=== PATIENT | male | born 1945 | race Caucasian/White ===

== ENCOUNTER 2017-10-05 08:30 | Outpatient (CLI) | payer MEDICARE, OTHER | END 2017-10-05 08:31 | disposition home or self-care (01) | LOC: LAB.F 08:30 | PROVIDERS: ATTEND Family Medicine | DX: E03.9 Hypothyroidism, unspecified (principal) | CPT/HCPCS: 36415; 84443 ==

== ENCOUNTER 2017-12-13 07:33 | Outpatient (CLI) | payer MEDICARE, OTHER ==
[2017-12-13 12:20] LABS: CHOL/HDL RATIO 2.3 (<5.0); CHOLESTEROL 177 mg/dL; HDL CHOLESTEROL 78 mg/dL; LDL CHOLESTEROL,CALCULATED 87 mg/dL; LDL/HDL RATIO 1.1 (<3.6); VLDL CHOLESTEROL 12 mg/dL
== END 2017-12-13 07:34 | disposition home or self-care (01) ==
LOC: LAB.F 07:33
PROVIDERS: ATTEND Family Medicine
DX: E78.5 Hyperlipidemia, unspecified (principal); Z12.5 Encounter for screening for malignant neoplasm of prostate
CPT/HCPCS: 36415; 80061; G0103; 83721; 84153

== ENCOUNTER 2018-09-28 14:00 | Outpatient (CLI) | payer MEDICARE, OTHER ==
[2018-09-28 18:16] LABS: CALCIUM 9.2 mg/dL (8.5-10.3); CREATININE 0.9 mg/dL (0.6-1.2)
== END 2018-09-28 14:01 | disposition home or self-care (01) ==
LOC: LAB.F 14:00
PROVIDERS: ATTEND Internal Medicine
DX: I10 Essential (primary) hypertension (principal); E03.9 Hypothyroidism, unspecified
CPT/HCPCS: 36415; 80048; 84443

== ENCOUNTER 2019-09-27 15:47 | Outpatient (CLI) | payer MEDICARE, OTHER ==
[2019-09-27 18:01] LABS: CALCIUM 10.3 mg/dL (8.5-10.3); CREATININE 1.1 mg/dL (0.6-1.2)
== END 2019-09-27 15:48 | disposition home or self-care (01) ==
LOC: LAB.S 15:47
PROVIDERS: ATTEND Internal Medicine
DX: I10 Essential (primary) hypertension (principal); E03.9 Hypothyroidism, unspecified
CPT/HCPCS: 36415; 80048; 84443

== ENCOUNTER 2020-08-03 10:03 | Outpatient (CLI) | payer MEDICARE, OTHER ==
[2020-08-03 16:34] LABS: BASOPHILS # (AUTO) 0.1 10^3/uL (0.0-0.1); EOSINOPHILS % (AUTO) 0.8 %; LYMPHOCYTES # (AUTO) 1.1 10^3/uL (1.5-3.5); LYMPHOCYTES % (AUTO) 21.5 %; MEAN CORPUSCULAR HEMOGLOBIN 29.7 pg (27.0-31.0); MEAN CORPUSCULAR HGB CONC 31.4 g/dL (32.0-36.0); MEAN CORPUSCULAR VOLUME 94.5 fL (80.0-94.0); MEAN PLATELET VOLUME 10.7 fL (7.4-11.4); MONOCYTES # (AUTO) 0.4 10^3/uL (0.0-1.0); MONOCYTES % (AUTO) 7.3 %; NEUTROPHILS # (AUTO) 3.4 10^3/uL (1.5-6.6); NEUTROPHILS % (AUTO) 69.2 %; PLT - PLATELET COUNT 281 10^3/uL (130-450); RED BLOOD COUNT 4.72 10^6/uL (4.70-6.10); RED CELL DISTRIBUTION WIDTH 13.8 % (12.0-15.0); WHITE BLOOD COUNT 4.9 x10^3/uL (4.8-10.8)
[2020-08-03 17:20] LABS: ALBUMIN/GLOBULIN RATIO 1.3 (1.0-2.2); BILIRUBIN,TOTAL 0.9 mg/dL (0.2-1.0); CALCIUM 9.4 mg/dL (8.5-10.3); CREATININE 0.9 mg/dL (0.6-1.2)
[2020-08-03 19:09] LABS: FREE T4 (FREE THYROXINE) 1.39 ng/dL (0.58-1.64)
== END 2020-08-03 10:04 | disposition home or self-care (01) ==
LOC: LAB.S 10:03
PROVIDERS: ATTEND Internal Medicine
DX: I10 Essential (primary) hypertension (principal); E03.9 Hypothyroidism, unspecified
CPT/HCPCS: 36415; 80053; 84439; 84443; 85025

== ENCOUNTER 2021-03-15 07:54 | Outpatient (CLI) | payer MEDICARE, OTHER ==
[2021-03-15 14:28] LABS: BASOPHILS # (AUTO) 0.1 10^3/uL (0.0-0.1); EOSINOPHILS # (AUTO) 0.2 10^3/uL (0.0-0.7); EOSINOPHILS % (AUTO) 4.4 %; HCT - HEMATOCRIT 43.2 % (42.0-52.0); LYMPHOCYTES # (AUTO) 1.1 10^3/uL (1.5-3.5); MEAN CORPUSCULAR HGB CONC 32.4 g/dL (32.0-36.0); MEAN CORPUSCULAR VOLUME 92.5 fL (80.0-94.0); MONOCYTES # (AUTO) 0.4 10^3/uL (0.0-1.0); MONOCYTES % (AUTO) 8.7 %; NEUTROPHILS # (AUTO) 3.2 10^3/uL (1.5-6.6); NEUTROPHILS % (AUTO) 63.7 %; PLT - PLATELET COUNT 243 10^3/uL (130-450); RED BLOOD COUNT 4.67 10^6/uL (4.70-6.10); RED CELL DISTRIBUTION WIDTH 13.6 % (12.0-15.0)
[2021-03-15 14:48] LABS: ALBUMIN 4.2 g/dL (3.2-5.5); ALBUMIN/GLOBULIN RATIO 1.5 (1.0-2.2); ALKALINE PHOSPHATASE 58 IU/L (42-121); ALT ALANINE AMINOTRANSFERASE 26 IU/L (10-60); AST ASPARTATE AMINOTRANSFERASE 27 IU/L (10-42); BILIRUBIN,TOTAL 0.8 mg/dL (0.2-1.0); BUN - BLOOD UREA NITROGEN 18 mg/dL (6-20); CALCIUM 9.3 mg/dL (8.5-10.3); CARBON DIOXIDE - CO2 26 mmol/L (21-32); CHLORIDE 104 mmol/L (101-111); CHOL/HDL RATIO 2.5 (<5.0); CHOLESTEROL 177 mg/dL; CREATININE 0.9 mg/dL (0.6-1.2); GFR - MDRD 83 (>89); GLUCOSE 106 mg/dL (70-100); HDL CHOLESTEROL 72 mg/dL; LDL CHOLESTEROL,CALCULATED 95 mg/dL; LDL/HDL RATIO 1.3 (<3.6); POTASSIUM 4.2 mmol/L (3.5-5.0); SODIUM 137 mmol/L (135-145); TRIGLYCERIDES 48 mg/dL; VLDL CHOLESTEROL 10 mg/dL
[2021-03-15 14:55] LABS: THYROID STIMULATING HORMONE 0.83 uIU/mL (0.34-5.60)
== END 2021-03-15 07:55 | disposition home or self-care (01) ==
LOC: LAB.S 07:54
PROVIDERS: ATTEND Internal Medicine
DX: Z00.00 Encounter for general adult medical examination without abnormal findings (principal); I10 Essential (primary) hypertension; E03.9 Hypothyroidism, unspecified
CPT/HCPCS: 36415; 80053; 80061; 83721; 84443; 85025

== ENCOUNTER 2021-03-25 11:35 | Outpatient (CLI) | payer MEDICARE, OTHER | END 2021-03-25 11:36 | disposition home or self-care (01) | LOC: LAB.S 11:35 | PROVIDERS: ATTEND Internal Medicine | DX: R53.83 Other fatigue (principal); Z12.5 Encounter for screening for malignant neoplasm of prostate | CPT/HCPCS: 36415; 82728; 84402; 84403; G0103; 81599; 84153 ==

== ENCOUNTER 2021-10-11 09:33 | Outpatient (CLI) | payer MEDICARE, OTHER ==
[2021-10-11 14:19] LABS: BASOPHILS # (AUTO) 0.1 10^3/uL (0.0-0.1); EOSINOPHILS # (AUTO) 0.1 10^3/uL (0.0-0.7); HCT - HEMATOCRIT 43.9 % (42.0-52.0); HGB - HEMOGLOBIN 14.5 g/dL (14.0-18.0); LYMPHOCYTES # (AUTO) 1.1 10^3/uL (1.5-3.5); LYMPHOCYTES % (AUTO) 21.7 %; MEAN CORPUSCULAR HEMOGLOBIN 30.1 pg (27.0-31.0); MEAN CORPUSCULAR VOLUME 91.3 fL (80.0-94.0); MEAN PLATELET VOLUME 10.6 fL (7.4-11.4); MONOCYTES # (AUTO) 0.4 10^3/uL (0.0-1.0); MONOCYTES % (AUTO) 7.7 %; NEUTROPHILS # (AUTO) 3.4 10^3/uL (1.5-6.6); NEUTROPHILS % (AUTO) 67.4 %; PLT - PLATELET COUNT 281 10^3/uL (130-450); RED BLOOD COUNT 4.81 10^6/uL (4.70-6.10); RED CELL DISTRIBUTION WIDTH 13.8 % (12.0-15.0); WHITE BLOOD COUNT 5.1 x10^3/uL (4.8-10.8)
[2021-10-11 14:49] LABS: ALBUMIN/GLOBULIN RATIO 1.3 (1.0-2.2); BILIRUBIN,TOTAL 0.7 mg/dL (0.2-1.0); CALCIUM 9.5 mg/dL (8.5-10.3); POTASSIUM 4.2 mmol/L (3.5-5.0)
[2021-10-11 14:57] LABS: THYROID STIMULATING HORMONE 0.39 uIU/mL (0.34-5.60)
== END 2021-10-11 09:34 | disposition home or self-care (01) ==
LOC: LAB.S 09:33
PROVIDERS: ATTEND Internal Medicine
DX: I10 Essential (primary) hypertension (principal); E03.9 Hypothyroidism, unspecified; E29.1 Testicular hypofunction
CPT/HCPCS: 36415; 80053; 81599; 84402; 84443; 85025

== ENCOUNTER 2022-08-01 10:08 | Outpatient (CLI) | payer MEDICARE, OTHER ==
--- NOTE | 2022-08-01 14:45 | XRAY Report ---
PROCEDURE: Shoulder 3 View RT INDICATIONS: PAIN OF RIGHT SHOULDER JOINT TECHNIQUE: 4 views of the shoulder were acquired. COMPARISON: None. FINDINGS: Bones: No fractures or dislocations. Mild AC joint degeneration. Mild coronary humeral joint degener ation. No suspicious bony lesions. Visualized ribs appear intact. Soft tissues: No suspicious soft tissue calcifications. IMPRESSION: No visible fractures or loose bodies. Reviewed by: Felicita Watkins MD on 08/01/2022 2:44 PM PDT Approved by: Felicita Watkins MD on 08/01/2022 2:44 PM PDT Station ID: [id number]
== END 2022-08-01 10:09 | disposition home or self-care (01) ==
LOC: DI.S 10:08
PROVIDERS: ATTEND Registered Nurse
DX: M19.011 Primary osteoarthritis, right shoulder (principal)

== ENCOUNTER 2022-12-09 02:01 | Outpatient (CLI) | payer MEDICARE, OTHER | END 2022-12-09 02:02 | disposition critical access hospital (66) | LOC: EMS 02:01 | DX: R10.12 Left upper quadrant pain (principal); R55 Syncope and collapse | CPT/HCPCS: A0425; A0429 ==

== ENCOUNTER 2022-12-09 02:29 | Observation (INO) | payer MEDICARE, OTHER ==
--- NOTE | 2022-12-09 02:29 | ED Physician Documentation ---
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 Patient is brought in by ambulance. Patient complains of left lower anterolateral chest pain. Patient had a similar episode 2 days ago without any particular inciting event but this spontaneously resolved. Patient had never previously had similar symptoms. Approximately 30 to 45 minutes prior to arrival tonight, patient awoke with the same left anterolateral chest pain, much more severe than it was 2 days ago, associate with nausea and vomiting, diaphoresis. Patient then got out of bed, abruptly became lightheaded and had a syncopal episode that lasted less than a minute. The pain is distinctly pleuritic, although he does not feel like he is not getting enough air. Patient denies any leg swelling or leg pain. Patient had 325 mg p.o. aspirin prior to arrival. EMS reports that on their initial exam as well as during transport, the patient was AAO x3 with stable vital signs and upper 90s pulse ox on room air. Patient arrives in obvious painful discomfort. Review of Systems Constitutional: reports: Sweats. denies: Fever, Chills Cardiac: reports: Chest pain / pressure. denies: Palpitations, Pedal edema, Calf pain Respiratory: reports: Dyspnea. denies: Cough, Hemoptysis, Wheezing GI: reports: Abdominal Pain (Patient's chief complaint is left low anterolateral chest pain although he also points to the left upper quadrant and left flank), Nausea, Vomiting : denies: Dysuria, Frequency, Hematuria Musculoskeletal: denies: Extremity swelling Neurologic: reports: Syncope. denies: Generalized weakness, Focal weakness, Numbness PD PAST MEDICAL HISTORY - Past Medical History Past Medical History: Yes Cardiovascular: Hypertension Endocrine/Autoimmune: HyPOthyroidism - Present Medications Home Medications: Ambulatory Orders Medication Instructions Recorded Confirmed Levothyroxine [Synthroid] 125 mcg PO QDAC 12/09/22 12/09/22 Lisinopril [Zestril] 10 mg PO DAILY 12/09/22 12/09/22 Travoprost [Travatan Z] 1 drops EACHEYE DAILY 12/09/22 12/09/22 - Allergies Allergies/Adverse Reactions: Allergies Allergy/AdvReac Type Severity Reaction Status Date / Time No Known Drug Allergies Allergy Verified 12/09/22 02:55 - Living Situation Living Situation: reports: With spouse/s.o. Living Arrangement: reports: At home - Social History Does the pt smoke?: No Does the pt drink ETOH?: Yes ETOH Use: Wine - Family History Family history: reports: Venous thromboembolism (Father (DVT, PE)), Other (Patient says his father had a clot in the leg that then went to the lung but that he did well with blood thinners. Patient says he had a sister who had an ankle injury and then was on an airplane flight which resulted in a blood clot in the leg which emoblized to the chest resulting in sudden ) PD ED PE NORMAL - Vitals Vital signs reviewed: Yes - General General: Alert and oriented X 3, Well developed/nourished, Other (Patient is standing at the side of the bed, holding his left chest/upper abdomen, appears to be in moderate painful distress although no respiratory distress. He is able to speak in full sentences.) - HEENT HEENT: Moist mucous membranes - Cardiac Cardiac: RRR, No murmur, No gallop, No rub - Respiratory Respiratory: No respiratory distress, Clear bilaterally - Abdomen Abdomen: Soft, Other (LUQ TTP although more pronounced tenderness with palpation of left low anterolateral ribs) - Back Back: No CVA TTP - Derm Derm: Normal color, Warm and dry - Extremities Extremities: No edema - Neuro Neuro: Alert and oriented X 3 Eye Opening: Spontaneous Motor: Obeys Commands Verbal: Oriented GCS Score: 15 Results - Vitals Vitals: Vital Signs - 24 hr 12/09/22 12/09/22 12/09/22 02:43 03:00 03:30 Temperature 36.8 C Heart Rate 82 82 67 Respiratory 18 21 16 Rate Blood Pressure 157/87 H 139/73 H 125/73 O2 Saturation 99 96 97 12/09/22 12/09/22 12/09/22 04:00 04:30 05:00 Temperature Heart Rate 71 64 61 Respiratory 15 18 19 Rate Blood Pressure 116/71 118/71 O2 Saturation 96 96 97 12/09/22 12/09/22 12/09/22 05:30 06:00 06:30 Temperature Heart Rate 61 68 67 Respiratory 12 20 17 Rate Blood Pressure 123/77 123/76 133/77 H O2 Saturation 99 98 99 12/09/22 12/09/22 07:00 07:30 Temperature Heart Rate 63 62 Respiratory 14 14 Rate Blood Pressure 120/73 105/68 O2 Saturation 98 98 Oxygen O2 Source Room air - EKG (time done) No standard instances Rate: Rate (enter#) (78) Rhythm: NSR Watkins: Normal Intervals: Normal MA QRS: Normal Ischemia: Normal ST segments - Labs Labs: Laboratory Tests 12/09/22 12/09/22 12/09/22 02:33 02:33 02:33 WBC 11.3 H RBC 4.56 L Hgb 13.7 L Hct 42.1 MCV 92.3 MCH 30.0 MCHC 32.5 RDW 13.5 Plt Count 238 MPV 10.0 Neut # (Auto) 8.8 H Lymph # (Auto) 1.5 [place] # (Auto) 0.8 Eos # (Auto) 0.1 Baso # (Auto) 0.1 Absolute Nucleated RBC 0.00 Nucleated RBC % 0.0 PT INR APTT Sodium 135 Potassium 4.0 Chloride 100 L Carbon Dioxide 23 Anion Gap 12.0 BUN 19 Creatinine 1.0 Estimated GFR (MDRD) 73 L Glucose 130 H Calcium 8.6 Total Bilirubin 0.7 AST 30 ALT 28 Alkaline Phosphatase 58 Troponin I High Sens 3.3 Total Protein 7.2 Albumin 3.7 Globulin 3.5 Albumin/Globulin Ratio 1.1 Lipase 29 TSH 12/09/22 12/09/22 02:33 05:40 WBC RBC Hgb Hct MCV MCH MCHC RDW Plt Count MPV Neut # (Auto) Lymph # (Auto) [place] # (Auto) Eos # (Auto) Baso # (Auto) Absolute Nucleated RBC Nucleated RBC % PT 11.5 INR 1.0 APTT 24.7 L Sodium Potassium Chloride Carbon Dioxide Anion Gap BUN Creatinine Estimated GFR (MDRD) Glucose Calcium Total Bilirubin AST ALT Alkaline Phosphatase Troponin I High Sens Total Protein Albumin Globulin Albumin/Globulin Ratio Lipase TSH 0.24 L - Rads (name of study) chest xray Radiology: Prelim report reviewed, EMP read indepedently, See rad report CTA chest Radiology: Prelim report reviewed, See rad report CT A/P with IV contrast Radiology: Prelim report reviewed, See rad report PD Medical Decision Making - ED course Complexity details: reviewed results, re-evaluated patient, considered differential, d/w patient ED course: Tests ordered and results reviewed by me: CBC, ER abdominal panel, high- sensitivity troponin, EKG, chest x-ray, CTA chest, CT abdomen and pelvis with IV contrast. The chest x-ray shows mild left basilar haziness, nonspecific finding with differential including atelectasis or an early infiltrate. IV is established shortly after arrival and he is given 15 mg of Toradol intravenously as well as 1 mg of Dilaudid intravenously. He is not in any respiratory distress on presentation or throughout the remainder of his ER stay (despite a significant pleuritic component to the chest pain which prevents him from taking deep breaths), but on arrival, he is obviously in significant painful distress. Patient experienced excellent relief of the symptoms given the Toradol and Dilaudid, and was resting comfortably on reevaluation after these medications as well as multiple subsequent reevaluations during the rest of his ER stay. Despite stable/normal vital signs, and an unremarkable work-up thus far, there i s still concern for significant pathology given the severity of his presenting discomfort. Due to the difficulty in localizing the pain to the chest or else the abdomen, a CTA of the chest as well as a CT abdomen pelvis with intravenous contrast was performed. There are no remarkable findings on the CT of the abdomen pelvis, but the CTA of the chest reveals pulmonary thromboemboli in the left lower lobe with possible developing lower lobe infarct. No right heart strain is seen. I reviewed the results of these tests with the patient and his spouse (in the ER at bedside) as well as the diagnosis and treatment. I did present the option of outpatient treatment, although given that he had a definitive and witnessed syncopal episode with the symptom onset tonight, my recommendation was to admit to the hospital for observation, further testing such as echo. The patient is agreeable to this approach. I discussed the case with the on-call telehealth physician who accepts admission to hospitalist service Departure - Departure Disposition: 66 [facility] DC/Xfer Clinical Impression: Pulmonary embolism, Syncope Condition: Stable
[2022-12-09] MEDS ORDERED: HYDROmorphone 1 MG/ML CARPUJECT IVP STA (02:51)
[2022-12-09] MEDS ORDERED: KETOROLAC 15 MG/ML VIAL IVP STA (02:51)
[2022-12-09 02:56] LABS: BASOPHILS # (AUTO) 0.1 10^3/uL (0.0-0.1); BASOPHILS % (AUTO) 0.5 %; EOSINOPHILS # (AUTO) 0.1 10^3/uL (0.0-0.7); EOSINOPHILS % (AUTO) 1.1 %; HCT - HEMATOCRIT 42.1 % (42.0-52.0); HGB - HEMOGLOBIN 13.7 g/dL (14.0-18.0); LYMPHOCYTES # (AUTO) 1.5 10^3/uL (1.5-3.5); LYMPHOCYTES % (AUTO) 13.1 %; MEAN CORPUSCULAR HGB CONC 32.5 g/dL (32.0-36.0); MEAN CORPUSCULAR VOLUME 92.3 fL (80.0-94.0); MONOCYTES # (AUTO) 0.8 10^3/uL (0.0-1.0); MONOCYTES % (AUTO) 7.4 %; NEUTROPHILS # (AUTO) 8.8 10^3/uL (1.5-6.6); NEUTROPHILS % (AUTO) 77.3 %; PLT - PLATELET COUNT 238 10^3/uL (130-450); RED BLOOD COUNT 4.56 10^6/uL (4.70-6.10); RED CELL DISTRIBUTION WIDTH 13.5 % (12.0-15.0); WHITE BLOOD COUNT 11.3 x10^3/uL (4.8-10.8)
[2022-12-09 03:08] LABS: ALBUMIN 3.7 g/dL (3.2-5.5); ALBUMIN/GLOBULIN RATIO 1.1 (1.0-2.2); BILIRUBIN,TOTAL 0.7 mg/dL (0.2-1.0); CALCIUM 8.6 mg/dL (8.5-10.3); TOTAL PROTEIN 7.2 g/dL (6.7-8.2)
[2022-12-09] MEDS ORDERED: iohexoL-300 100 ML VIAL ONE (03:45)
[2022-12-09] MEDS ORDERED: ONDANSETRON 4 MG/2 ML VIAL IVP STA (03:48)
[2022-12-09] MEDS ORDERED: iohexoL-300 100 ML VIAL IVP ONE (04:46)
[2022-12-09] MEDS ORDERED: ENOXAPARIN 80 MG/0.8 ML SYRINGE SUBQ STA (06:00)
[2022-12-09 06:06] LABS: PT - PROTHROMBIN TIME 11.5 secs (9.9-12.6)
[2022-12-09 06:13] LABS: PARTIAL THROMBOPLASTIN TIME 24.7 secs (24.9-33.3)
--- NOTE | 2022-12-09 06:21 | HISTORY & PHYSICAL EXAMINATION ---
Chief Complaint - Chief Complaint Chief Complaint: Chest Pain History of Present Illness - Admitted From Admitted From:: ER - History Obtained From Records Reviewed: Yes - History of Present Illness HPI Comment/Other: 76 yo M with PMH of HTN, Hypothyroidism presented to the ER with 2 day h/o intermittent CP and s/p episode of Syncope. Pt had L lower CP 2 days ago, which resolved. He had no CP when he went to bed. Then 2 hours after he went to sleep, he woke up with a sudden onset of Chest pain with SOB, nausea. He stood up, felt sweaty, then passed out. witnessed. Pt had LOC x 1 minute, no jerking. called EMS. When pt woke up, he still had CP, mild dizziness. Pain is better with movement, walking. CP is worse with taking a deep breath; it helps to raise his shoulders when he breathes. Pt has had Nausea with vomiting (non-bloody) in the ER. No leg pain. No recent travel. Pt is active. FH: +for DVTs and PEs in 3 family members. No cough/F/C, abdo pain, dysuria. In the ER, WBC 11.3, Hgb 13.7, CXR: hazy LLL infiltrate, CTA Chest: multiple PE LLL, no RH strain. Pt was given Toradol, Zofran, Dilaudid, and Lovenox in the ER. History - Past Medical History Cardiovascular: reports: Hypertension Endocrine/Autoimmune: reports: HyPOthyroidism HEENT: reports: Glaucoma - Past Surgical History General: reports: Other Cardiovascular: reports: Other - POLST Patient has POLST: No Meds/Allgy - Home Medications Home Medications: Ambulatory Orders Medication Instructions Recorded Confirmed Levothyroxine [Synthroid] 125 mcg PO QDAC 12/09/22 12/09/22 Lisinopril [Zestril] 10 mg PO DAILY 12/09/22 12/09/22 Travoprost [Travatan Z] 1 drops EACHEYE DAILY 12/09/22 12/09/22 - Allergies Allergies/Adverse Reactions: Allergies Allergy/AdvReac Type Severity Reaction Status Date / Time No Known Drug Allergies Allergy Verified 12/09/22 02:55 Review of Systems - All Other Systems All Other Systems: reports: Reviewed and negative Exam - Vital Signs Reviewed Vital Signs: Yes Vital Signs: Vital Signs x48h Temp Pulse Resp BP Pulse Ox 12/09/22 05:30 61 12 123/77 99 12/09/22 05:00 61 19 118/71 97 12/09/22 04:30 64 18 116/71 96 12/09/22 04:00 71 15 96 12/09/22 03:30 67 16 125/73 97 12/09/22 03:00 82 21 139/73 H 96 12/09/22 02:43 36.8 C 82 18 157/87 H 99 - Physical Exam General Appearance: positive: No acute distress Eyes Bilateral: positive: Normal inspection, PERRL, EOMI Respiratory: positive: Other (no access to stethoscope; per ER Provider: CTA B/L) Cardiovascular: positive: Other ( no access to stethoscope; per ER Provider: RRR, no murmurs) Abdomen: positive: Other (per ER Provider: non-distended, NT, Soft) Skin: positive: Color nml Extremities: positive: Full ROM Neurologic/Psychiatric: positive: Oriented x3, Other (NFD) Conclusion/Plan - Problem List (1) Pulmonary embolus Conclusion/Plan: Pulmonary Emboli LLL Chest Pain LLL Shortness of Breath FH DVT, PE -CXR: hazy LLL infiltrate -CTA Chest: multiple PE LLL, no RH strain (per ER Provider; report not yet in chart) -Pt was given Toradol, Zofran, Dilaudid, and Lovenox in the ER. -admit to Obs for pain control and Syncope W/U -F/U on official report of CT Chest -Venous Doppler U/S LE ordered -continue pain control, anti-emetics -I.S. -continue Lovenox 80 mg SQ BID; consider changing to PO AC if insurance allows -O2 support PRN Syncope -most likely d/t pain -admit to Telemetry -trend Troponins -Echo ordered Nausea/Vomiting -d/t pain -anti-emetics PRN HTN -continue home medications: Lisinopril Hypothyroid -continue home medications: Levothyroxine -check TSH VTE Prophylaxis: on Lovenox Code Status: D/W pt; he is DNR - Lab Results Fish Bones: 12/09/22 02:33 12/09/22 02:33
[2022-12-09] MEDS ORDERED: PROCHLORPERAZINE 10 MG/2 ML VIAL IVP PRN (06:42)
[2022-12-09] MEDS ORDERED: HYDROmorphone 0.5 MG/0.5 ML SYRINGE IVP PRN (06:42)
[2022-12-09] MEDS ORDERED: SODIUM CHLORIDE FLUSH 0.9% 10 ML SYRINGE IVP PRN (06:42)
[2022-12-09] MEDS ORDERED: ONDANSETRON 4 MG/2 ML VIAL IVP PRN (06:42)
[2022-12-09] MEDS ORDERED: oxyCODONE 5 MG TABLET PO PRN (06:42)
[2022-12-09] MEDS ORDERED: ACETAMINOPHEN 325 MG TABLET PO PRN (06:42)
[2022-12-09] MEDS: LEVOTHYROXINE 125 MCG TABLET PO SCH (07:11)
--- NOTE | 2022-12-09 08:18 | CT Report ---
PROCEDURE: ANGIO CHEST W/WO INDICATIONS: left low chest pain CONTRAST: Omni 300 100ml TECHNIQUE: After the administration of intravenous contrast, 2 mm axial images were acquired from the pulmonary apices to the posterior costophrenic angles during the arterial phase. In addition, 1 mm lung kernel and 5 mm soft tissue kernel reconstructions were performed. 3-dimensional coronal oblique maximum int ensity projection (MIP) reformats, 8 mm axial MIP, and 5 mm coronal and sagittal MPR reformats were t hen performed through the thorax. For radiation dose reduction, the following was used: automated exp osure control, adjustment of mA and/or kV according to patient size. COMPARISON: None FINDINGS: Image quality: Excellent. Pulmonary arteries: Small burden of distal segmental pulmonary bolus in the left lower lobe (series 2 , image 25). Lungs and pleura: Left basilar atelectasis. Peripheral, wedge-shaped region of groundglass in the lef t lower lobe, presumably developing infarct. Biapical scarring. Mediastinum: Normal heart size. No adenopathy. Concave appearance of the intraventricular septum. Sma ll hiatal hernia. Bones and chest wall: No suspicious bony lesions. Right-sided scoliosis. Ribs and thoracic spine keri ear intact throughout. No axillary or supraclavicular adenopathy. The thyroid is diminutive, and re latively hypoattenuating. Abdomen: Fluid attenuating liver cysts. Calcified granuloma of the liver and spleen. IMPRESSION: 1. Small burden of distal segmental pulmonary embolus in the left lower lobe, resulting in suspected early/small infarct of the left lower lobe. No evidence of heart strain. 2. The thyroid is diminutive, with hypoattenuation. Findings may indicate thyroid dysfunction. Consid er correlation with TSH. CLINICAL RECOMMENDATION STATEMENTS: In patients <35 years with an ITN detected on CT, MRI, or extrathyroidal ultrasound, the Committee re commends further evaluation with dedicated thyroid ultrasound if the nodule is "e1 cm and has no susp icious imaging features, and if the patient has normal life expectancy. In patients "e35 years with an ITN detected on CT, MRI, or extrathyroidal ultrasound, the Committee r ecommends further evaluation with dedicated thyroid ultrasound if the nodule is "e1.5 cm and has no s uspicious imaging features, and if the patient has normal life expectancy. (ACR, 2014) Reviewed by: Feliciano Beckman on 12/09/2022 8:16 AM PST Approved by: Feliciano Beckman on 12/09/2022 8:16 AM PST Station ID: [id number]
--- NOTE | 2022-12-09 08:22 | XRAY Report ---
PROCEDURE: Chest 1 View X-Ray INDICATIONS: chest pain TECHNIQUE: One view of the chest was acquired. COMPARISON: None. FINDINGS: Surgical changes and devices: None. Lungs and pleura: Left basilar atelectasis/consolidation. Mediastinum: Mediastinal contours appear normal. Heart size is normal. Bones and chest wall: No suspicious bony lesions. Overlying soft tissues appear unremarkable. IMPRESSION: Left basilar atelectasis/consolidation. Agree with preliminary report. Reviewed by: Feliciano Beckman on 12/09/2022 8:21 AM [facility] Approved by: Feliciano Beckman on 12/09/2022 8:21 AM [facility] Station ID: [id number]
--- NOTE | 2022-12-09 08:29 | CT Report ---
PROCEDURE: ABDOMEN/PELVIS W INDICATIONS: low chest/upper abd. pain CONTRAST: Omni 300 100ml TECHNIQUE: After the administration of iv contrast, 5 mm thick sections acquired from the diaphragms to the symp hysis. 5 mm thick coronal and sagittal reformats were acquired. For radiation dose reduction, the f ollowing was used: automated exposure control, adjustment of mA and/or kV according to patient size. COMPARISON: CTA chest from the same date. FINDINGS: Image quality: Excellent. ABDOMEN: Lung bases: There is a tiny embolus seen in a nasal segment left lower lobe pulmonary artery on image 5 and image 6 of series 6. There is pulmonary density in the extreme left lower lobe lung base. Hear t size is normal. Solid organs: Liver and spleen are normal in size and enhancement. Small left lobe liver cyst. Exten sive calcified splenic granulomata incidentally noted. Gallbladder is unremarkable without calcified gallstones. Biliary system is non dilated. Pancreas enhances normally. No adrenal nodules. Kidne ys demonstrate normal size and enhancement, without hydronephrosis. Peritoneum and bowel: Bowel loops demonstrate normal wall thickness and caliber. No free fluid or a ir. Nodes and vessels: No retroperitoneal or mesenteric adenopathy by size criteria. Aorta and inferior vena cava are normal in size. Miscellaneous: No ventral hernias. PELVIS: Genitourinary: Bladder wall thickness is normal. Miscellaneous: Fat-containing right inguinal hernia. No inguinal adenopathy. Bones: No suspicious bony lesions. No vertebral body compression fractures. Probable bone islands involving T12 and L1. IMPRESSION: 1. Acute left lower lobe pulmonary embolus. Please refer to separate report for CT chest findings. 2. Pulmonary density in the extreme left lower lobe lung base may represent atelectasis or pulmonary infarct. 3. No evidence of acute abdominal process. Findings are concordant with preliminary interpretation provided by [facility]. Reviewed by: Pankaj Ochoa MD on 12/09/2022 8:28 AM PST Approved by: Pankaj Ochoa MD on 12/09/2022 8:28 AM PST Station ID: [id number]
--- NOTE | 2022-12-09 08:53 | Ultrasound Report ---
PROCEDURE: Duplex Venous Limited INDICATIONS: Pulmonary Emboli TECHNIQUE: Real-time imaging, as well as color and pulse Doppler interrogation, were performed of the lower extr emity deep veins from the inguinal ligament to the popliteal fossa. COMPARISON: None. FINDINGS: The deep veins are normally compressible, and free of intraluminal thrombus. Color and pu lse Doppler demonstrate normal phasic intraluminal flow. There is normal augmentation response to di stal compression maneuver. IMPRESSION: Negative for DVT. Reviewed by: Hay mC MD on 12/09/2022 8:51 AM PST Approved by: Hay Cm MD on 12/09/2022 8:51 AM PST Station ID: [id number]
[2022-12-09] MEDS ORDERED: lisinopriL 5 MG TABLET PO SCH ×2 (09:00→21:00)
[2022-12-09] MEDS ORDERED: CALCIUM CARBONATE CHEW 500 MG TABLET PO PRN ×2 (11:53→13:33)
--- NOTE | 2022-12-09 12:13 | PROVIDER PROGRESS NOTE ---
Hospitalist Cross-cover Note - Cross-Cover Note Cross-Cover Note: Patient is admitted with syncope. An Echocardiogram has been ordered by the Telemedicine night doctor. We have no animal technician here today (Monday). As a Board-certified Nutrition Services Associate, credentialed to do Echoes, I performed a complete bedside Echo with Doppler evaluation. Indication: Acute PE, Syncope The Echo showed: Normal LA and RA sizes. Normal aortic root diameter. Normal left ventricular size and wall thickness. Normal LV contractility, ejection fraction 60 to 65%. Doppler shows normal diastolic inflow Normal right ventricular size and wall thickness. Normal RV contractility. Mild mitral annular calcification. The aortic valve is trileaflet and has minor sclerotic changes. The mitral, tricuspid and pulmonic valves appear structurally normal. Doppler of the valves shows trace mitral and tricuspid regurgitation. Pulmonary artery systolic pressure could not be calculated from this trivial TR jet. No pericardial effusion seen. Summary: Normal chamber sizes. Normal LV and RV contractility. No evidence of cor pulmonale (right heart strain). Trace mitral and tricuspid regurgitation only.
--- NOTE | 2022-12-09 13:55 | PHARMACY PROGRESS NOTE ---
- Best Possible Medication History Admit Date and Time: 12/09/22 0642 Processed by: Pharmacy Medication History completed: Yes Patient Interview: Completed Secondary Source(s): Physician records, Pharmacy records, Insurance records As the person ultimately responsible for medication therapy, providers are able to order a medication from an existing home medication list in [facility] via the "Reconcile Routine" prior to Confirmation of that medication by cad application support specialist. Such practice is discouraged except when the physician, in their clinical judgment, deems that a medical need exists for a medication without regard to previous use.
[2022-12-09] MEDS: SODIUM CHLORIDE FLUSH 0.9% 10 ML SYRINGE IVP SCH (17:54)
[2022-12-09] MEDS: APIXABAN 5 MG TABLET PO SCH (17:54)
[2022-12-09 19:18] LABS: BILIRUBIN,URINE NEGATIVE (NEGATIVE); GLUCOSE, URINE (UA) NEGATIVE (NEGATIVE); KETONES,URINE (UA) NEGATIVE (NEGATIVE); LEUKOCYTE ESTERASE, URINE NEGATIVE (NEGATIVE); NITRITE,URINE NEGATIVE (NEGATIVE); OCCULT BLOOD,URINE TRACE-INTA (NEGATIVE); PROTEIN,URINE NEGATIVE (NEGATIVE); UROBILINOGEN,URINE 0.2 (NORMAL) E.U./dL (NORMAL)
[2022-12-09 19:20] LABS: CLARITY,URINE CLEAR (CLEAR)
[2022-12-09] MEDS ORDERED: ENOXAPARIN 80 MG/0.8 ML SYRINGE SUBQ SCH (21:00)
[2022-12-09] MEDS ORDERED: LATANOPROST 0.005% OPHTH DROPS EACHEYE SCH (21:00)
[2022-12-10] MEDS: SODIUM CHLORIDE FLUSH 0.9% 10 ML SYRINGE IVP SCH ×2 (01:00→09:09)
[2022-12-10] MEDS: LEVOTHYROXINE 125 MCG TABLET PO SCH (06:08)
--- NOTE | 2022-12-10 08:17 | DISCHARGE SUMMARY ---
"Discharge Summary Admit Date: 12/09/22 Discharge Date: 12/10/22 Discharging Provider: Dr Brunilda Oneill Primary Care Provider: MAKENZIE Elizondo Code Status: Do Not Attempt Resuscitation Condition at Discharge: Stable Discharge Disposition: 01 Home, Self Care - HPI History of Present Illness: 76 yo male with PMH of HTN, Hypothyroidism presented to the ER with 2 day h/o intermittent CP and s/p episode of Syncope. Pt had L lower CP 2 days ago, which resolved. He had no CP when he went to bed last night. Then 2 hours after he went to sleep, he woke up with a sudden onset of chest pain with SOB, nausea. He stood up, felt sweaty, then passed out. witnessed. Pt had LOC x 1 minute, no jerking. called EMS. When pt woke up, he still had CP, mild dizziness. Pain is better with movement, walking. CP is worse with taking a deep breath; it helps to raise his shoulders when he breathes. Pt has also had Nausea with vomiting (non-bloody) in the ER. No leg pain. No recent travel. Pt is active. FH: +for DVTs and PEs in 3 family members. No cough, no fever or chills, no abdom pain, no dysuria. In the ER, WBC 11.3, Hgb 13.7, CXR: hazy LLL infiltrate, CTA Chest: multiple PE LLL, no Right heart strain. Pt was given Toradol, Zofran, Dilaudid, and Lovenox therapeutic dose in the ER. He will be placed in Observation to evaluate the syncope in setting of PE. Patient wishes to be a DNR. - CONSULTS | PROCEDURES Procedures: Complete Echo cardiogram with Doppler and color Doppler Date: 12/09/2022 Indication: Acute Pulm Embolism, Syncope The Echo showed: Normal LA and RA sizes. Normal aortic root diameter. Normal left ventricular size and wall thickness. Normal LV contractility, ejection fraction 60 to 65%. Doppler shows normal diastolic inflow. Normal right ventricular size and wall thickness. Normal RV contractility. Mild mitral annular calcification. The aortic valve is trileaflet and has minor sclerotic changes. The mitral, tricuspid and pulmonic valves appear structurally normal. Doppler of the valves shows trace mitral and tricuspid regurgitation. Pulmonary artery systolic pressure could not be calculated from this trivial TR jet. No pericardial effusion seen. Summary: Normal chamber sizes. Normal LV and RV contractility. No evidence of cor pulmonale (right heart strain). Trace mitral and tricuspid regurgitation only. Leg DVT Date 12/09/22 Result: Neg for DVT - HOSPITAL COURSE Hospital Course: (1) Pulmonary embolus Multiple pulmonary emboli of LLL were demonstrated. Leg Dopplers were neg for DVT. He received Lovenox 80 mg SQ, then was started on oral Eliquis BID (PE dosing), and was discharged on this. 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 Therefore lifelong anti- coagulation may be needed. Please consider a Hematology referral or please test for clotting dysfunction. (2) Syncope Telemetry showed no arrhythmias. Troponins were unremarkable. His Echo was WNL. He was mildly orthostatic and iv fluids were administered. The cause was most likely a vasovagal syncope event, caused by severe pain. Vasovagal syncope was discussed with the patient. (3) Nausea/Vomiting Anti-emetics were ordered PRN, but he had no more symptoms. (4) HTN We continued home medication Lisinopril (5) Hypothyroid His TSH came back low at 0.24. We continued his usual home dose of Levothyroxine, therefore thyroid med adjustments and retesting are needed. - ALLERGIES Allergies/Adverse Reactions: Allergies Allergy/AdvReac Type Severity Reaction Status Date / Time No Known Drug Allergies Allergy Verified 12/09/22 02:55 - MEDICATIONS Home Medications: Ambulatory Orders Medication Instructions Recorded Confirmed Levothyroxine [Synthroid] 125 mcg PO QDAC 12/09/22 12/09/22 Travoprost [Travatan Z] 1 drops EACHEYE DAILY 12/09/22 12/09/22 Apixaban [Eliquis] 5 mg PO BID #66 tab 12/10/22 Calcium Carbonate [Tums (Calcium 1,000 mg PO TID PRN tab 12/10/22 Carbonate 500mg)] Lisinopril [Zestril] 5 mg PO DAILY #30 tab 12/10/22 - PHYSICAL EXAM AT DISCHARGE General Appearance: positive: No acute distress, Alert Eyes Bilateral: positive: Normal inspection, EOMI ENT: positive: ENT inspection nml, No signs of dehydration Neck: positive: Nml inspection, No JVD Respiratory: positive: Chest non-tender (No more pleuritic pain), No respiratory distress, Breath sounds nml Abdomen: positive: Non-tender, Nml bowel sounds, No distention Skin: positive: Warm, Dry Extremities: positive: Non-tender, No pedal edema - LABS Result Diagrams: 12/10/22 08:22 12/10/22 08:22 - DIAGNOSTIC IMAGING Diagnostic Imaging Results: Final report reviewed - FOLLOW UP Follow Up: See Jennifer Elizondo NP in 1-3 weeks for a hospital follow-up visit. - TIME SPENT Time Spent in Discharge (Minutes): 25"
--- NOTE | 2022-12-10 08:32 | Discharge Plan ---
Discharge Plan Problem Reviewed?: Yes Disposition: Home, Self Care Condition: Stable Prescriptions: Apixaban [Eliquis] 5 mg PO BID #66 tab Lisinopril [Zestril] 5 mg PO DAILY #30 tab Diet: Regular Activity Restrictions: Activity as Tolerated Shower Restrictions: No Driving Restrictions: Yes (No driving if lightheaded or if you fainted again) Instruction Topics: Embolism Pulmonary, Treatment for Vasovagal Syncope, ED Syncope Vasovagal Health Concerns: You were hospitalized to evaluate the fainting episode and to start treatment for the blood clots in your lungs. Your ultrasound of leg veins showed no clots. Your Echocardiogram was within normal limits. It is very likely that you have a familial predisposition to forming clots, since 3 other members of your family have had history of blood clots, similar to years. You need to speak to your primary care provider about this, to see if you need referral to a [employer] for special blood testing regarding abnormalities in your clotting factors. The treatment for the blood clots is a blood thinner. You have been prescribed to take Eliquis 10 mg (2 tablets of 5 mg), take that twice a day for 1 week (6 more days for you), then take 1 tablet twice a day going forward. You will probably need this medication for a minimum of 3-6 months, possibly lifelong. This prescription was electronically sent to your pharmacy on [facility]. Refills should come from your Primary Care Provider and then could be mail- order. You are mildly dehydrated. We ascertained this from checking your blood pressure lying, sitting, standing. Dehydration may have added to the fainting spell. Most likely you fainted because of an extreme symptom (of chest pain). This is called vasovagal syncope. It is managed by staying well-hydrated and also getting up from a lying position slowly, go to a sitting position then wait before you stand up. It may also be caused by seeing blood or having any other disturbing event. Please speak to your doctor about any other treatments you may need for vasovagal syncope. If you are dizzy, you should not be driving a car. If you have another episode of fainting, then you should not drive until being cleared to resume driving, by your doctor or medical provider. Also, your blood pressure medicine was adjusted downward in order to prevent low blood pressures; take Lisinopril 5 mg not 10 mg. Also, you should move the Lisinopril dose to the morning, when blood pressures tend to be higher, when people are awake and active, instead of taking it at bedtime, when blood pressures tends to be lower anyway. Plan of Treatment: As above. Care Goals: Improvement in symptoms and stabilization are the goals. Assessment: Patient understands and is agreeable with the plan. Additional Instructions or Follow Up instructions: You should see your primary care provider in the next 5 to 10 days for a hospital follow-up visit. It is suggested that you measure your blood pressure at home daily to bring in those BP readings for Tyra Elizondo NP to review. If you have new or worsening symptoms, call your PCP for advice, or come to the ER. No Smoking: If you smoke, Please STOP! Call for help. Follow-up with: Jennifer Elizondo ARNP [Physician No Access] -
[2022-12-10 08:38] LABS: CALCIUM 9.3 mg/dL (8.5-10.3)
[2022-12-10 09:00] LABS: BASOPHILS % (AUTO) 0.6 %; EOSINOPHILS # (AUTO) 0.1 10^3/uL (0.0-0.7); EOSINOPHILS % (AUTO) 1.2 %; HCT - HEMATOCRIT 44.8 % (42.0-52.0); HGB - HEMOGLOBIN 14.1 g/dL (14.0-18.0); LYMPHOCYTES # (AUTO) 0.9 10^3/uL (1.5-3.5); LYMPHOCYTES % (AUTO) 13.8 %; MEAN CORPUSCULAR HEMOGLOBIN 29.3 pg (27.0-31.0); MEAN CORPUSCULAR HGB CONC 31.5 g/dL (32.0-36.0); MEAN CORPUSCULAR VOLUME 93.1 fL (80.0-94.0); MEAN PLATELET VOLUME 10.4 fL (7.4-11.4); MONOCYTES # (AUTO) 0.4 10^3/uL (0.0-1.0); MONOCYTES % (AUTO) 6.3 %; NEUTROPHILS # (AUTO) 5.2 10^3/uL (1.5-6.6); NEUTROPHILS % (AUTO) 77.8 %; PLT - PLATELET COUNT 269 10^3/uL (130-450); RED BLOOD COUNT 4.81 10^6/uL (4.70-6.10); RED CELL DISTRIBUTION WIDTH 13.4 % (12.0-15.0); WHITE BLOOD COUNT 6.7 x10^3/uL (4.8-10.8)
[2022-12-10] MEDS: APIXABAN 5 MG TABLET PO SCH (09:09)
[2022-12-10 10:49] VITALS: BP 128/67
== END 2022-12-10 11:19 | disposition home or self-care (01) ==
LOC: ED 02:29 → MS2 06:42
PROVIDERS: ADMIT Internal Medicine; ATTEND Internal Medicine
DX: I26.99 Other pulmonary embolism without acute cor pulmonale (principal); E03.9 Hypothyroidism, unspecified; I10 Essential (primary) hypertension; R11.2 Nausea with vomiting, unspecified; R55 Syncope and collapse; Z20.822 Contact with and (suspected) exposure to COVID-19
CPT/HCPCS: 36415; 71045; 71275; 74177; 80048; 80053; 81003; 83690; 84443; 84484; 85025; 85610; 85730; 87635; 93005; 93971; 96372; 96374; 96375; 99284; 99285; A9270; G0378; J1170; J1650; Q9967; 81001; 87086

== ENCOUNTER 2023-01-25 08:37 | Day surgery (SDC) | payer MEDICARE, OTHER ==
--- NOTE | 2023-01-25 07:20 | ANESTHESIA ---
Pre-Anesthesia VS, & Labs - Diagnosis screening - Procedure colonoscopy Height: 6 ft - NPO >8 hours Last Fluid Intake: am prep - Lab Results Lab results reviewed: No Home Medications and Allergies Levothyroxine [Synthroid] 112 mcg PO QDAC 12/09/22 Travoprost [Travatan Z] 1 drops EACHEYE DAILY 12/09/22 Allergies/Adverse Reactions: Allergies Allergy/AdvReac Type Severity Reaction Status Date / Time No Known Drug Allergies Allergy Verified 01/25/23 08:45 Anes History & Medical History - Anesthetic History Anesthesia Complications: reports: No previous complications Family history of Anesthesia Complications: Denies Family history of Malignant Hyperthermia: Denies - Medical History Cardiovascular: reports: Pulmonary embolism Pulmonary: reports: Other Gastrointestinal: reports: GERD Urinary: reports: None Neuro: reports: None Musculoskeletal: reports: Osteoporosis Endocrine/Autoimmune: reports: HyPOthyroidism Blood Disorders: reports: None Skin: reports: None Smoking Status: Former smoker - Surgical History General: reports: Other Cardiothoracic: reports: Other Orthopedic: reports: Other Exam General: Alert, Oriented x3, Cooperative Dental: WNL Mouth Openin Fingerbreadth Neck Mobility: Normal Mallampati classification: II Thyromental Distance: 4-6 cm Respiratory: Lungs clear, Normal breath sounds, No respiratory distress Cardiovascular: Regular rate Neurological: Normal speech Mental/Cognitive Status: Alert/Oriented X3, Normal for patient Cognitive Status: Within normal limits Plan Anesthesia Type: Total IV Consent for Procedure(s) Verified and Reviewed: Yes Code Status: Attempt Resuscitation ASA classification: 2-Mild systemic disease Is this case an emergency?: No
[2023-01-25] MEDS ORDERED: LACTATED RINGERS 1,000 ML IV ONE ×2 (09:26→11:36)
[2023-01-25] MEDS ORDERED: PROPOFOL 500 MG/50 ML 500 MG/50 ML VIAL ONE (10:24)
[2023-01-25 12:04] VITALS: BP 116/83
--- NOTE | 2023-01-25 12:19 | ANESTHESIA POST OP EVALUATION ---
Anesthesia Post Eval - Post Anesthesia Eval Vitals: Last Vital Signs Temp 36.4 C L 01/25/23 11:36 Pulse 68 01/25/23 12:03 Resp 18 01/25/23 12:03 BP 116/83 H 01/25/23 12:03 Pulse Ox 100 01/25/23 12:03 O2 Flow Rate CV Function Including HR & BP: Stable Pain Control: Satisfactory Nausea & Vomiting: Negative Mental Status: Baseline Respiratory Status: Airway Patent Hydration Status: Satisfactory Anesthesia Complications: None
== END 2023-01-25 08:38 | disposition home or self-care (01) ==
LOC: SDS 08:37
PROVIDERS: ATTEND Surgery
DX: Z12.11 Encounter for screening for malignant neoplasm of colon (principal); R19.5 Other fecal abnormalities; K57.30 Diverticulosis of large intestine without perforation or abscess without bleeding; K64.1 Second degree hemorrhoids; Z87.891 Personal history of nicotine dependence; Z86.711 Personal history of pulmonary embolism; Z79.01 Long term (current) use of anticoagulants
CPT/HCPCS: G0121; J7120